=== PATIENT | male | born 1995 | race African-American/Black ===

== ENCOUNTER 2017-10-04 15:19 | Emergency (ER) | payer SELFPAY ==
[~2017-10-04] VITALS: Ht 170.2 cm; Wt 78.0 kg
[2017-10-04] MEDS ORDERED: IBUPROFEN 200MG TABLET ONE (15:37)
[2017-10-04] MEDS ORDERED: IBUPROFEN 600MG TABLET PO ONE ×2 (15:45→17:15)
[2017-10-04] MEDS ORDERED: CEFTRIAXONE SODIUM 250 MG/VIAL IM ONE (17:15)
[2017-10-04] MEDS ORDERED: AZITHROMYCIN 500 MG TABLET PO ONE (17:15)
[2017-10-04] MEDS ORDERED: ACETAMINOPHEN 325MG TABLET PO ONE (17:15)
[2017-10-04] MEDS ORDERED: LIDOCAINE HCL 1% 20ML VIAL (Pyxis) INJ MC ONE (17:15)
[2017-10-04 17:16] LABS: CLARITY URINE CLEAR (CLEAR); COLOR URINE YELLOW (YELLOW); KETONES URINE TRACE (NEGATIVE); LEUKOCYTE ESTERASE URINE TRACE (NEGATIVE); NITRITE URINE NEGATIVE (NEGATIVE); OCCULT BLOOD URINE 1+ (NEGATIVE); PROTEIN URINE NEGATIVE (NEGATIVE); SPECIFIC GRAVITY URINE 1.027 (1.005-1.030)
[2017-10-04] MEDS ORDERED: LIDOCAINE HCL/PF 1% 10 MG/ML 5ML VIAL IJ ONE (17:30)
[2017-10-04 17:40] LABS: *AMPHETAMINES SCREEN URINE NEGATIVE (NEGATIVE); *BARBITURATES SCREEN URINE NEGATIVE (NEGATIVE); *BENZODIAZEPINES SCREEN URINE NEGATIVE (NEGATIVE); *COCAINE SCREEN URINE NEGATIVE (NEGATIVE); METHADONE URINE SCREEN NEGATIVE (NEGATIVE)
[2017-10-04 17:41] LABS: CANNABINOID URINE SCREEN NEGATIVE (NEGATIVE); OPIATES URINE SCREEN NEGATIVE (NEGATIVE); PHENCYCLIDINE URINE SCREEN NEGATIVE (NEGATIVE)
[2017-10-04 18:08] VITALS: BP 112/82
== END 2017-10-04 18:09 | disposition home or self-care (01) ==
LOC: ER 15:19
DX: R30.0 Dysuria (principal); J02.9 Acute pharyngitis, unspecified; J45.909 Unspecified asthma, uncomplicated
CPT/HCPCS: 80305; 81003; 96372; 99284; J0696; J3490; Z7610